=== PATIENT | male | born 1960 | race Caucasian/White ===

== ENCOUNTER → 2017-06-25 | Outpatient (CLI) | payer BC ==
--- NOTE | 2017-06-26 09:50 | US ---
THYROID ULTRASOUND CLINICAL INFORMATION: Thyroid nodule TECHNIQUE: Thyroid sonogram was performed. COMPARISON: None FINDINGS: Thyroid size: Right thyroid lobe measures 5.5 x 1.7 x 2 cm. Left thyroid lobe measures 4.8 x 1.5 x 1.2 cm. Texture: Between nodules, the thyroid parenchyma is hyperechoic with normal texture. Estimated total number of nodules >/=1 cm: 2 Nodules Right In the right thyroid lobe, two nodules are seen, largest in the inferior right thyroid lobe measuring 2 x 1.2 x 1 cm with inhomogeneous texture but no cystic components or calcifications. Color Doppler imaging shows positive flow in the upper portion of the nodule slightly greater than adjacent thyroid parenchyma. At this size, further evaluation with fine-needle aspiration biopsy is recommended unless previously performed. In the mid to posterior right thyroid lobe a hypoechoic nodule is seen which measures 1 x 0.8 x 0.7 cms. No internal calcifications are seen to suggest that this needs biopsy at this time. Isthmic thickness is normal measuring 2 mm. Left Two tiny nodules are seen in the lower pole of the left thyroid lobe. One measures 3 mm and the other measures 4 mm. No further imaging follow-up is needed for these two tiny nodules. IMPRESSION: Dominant nodule in the lower pole of the right lobe of the thyroid gland measuring 2 cm in greatest dimension. Further evaluation with fine-needle aspiration biopsy is recommended. Smaller nodules in the right and left thyroid lobes.. Follow up as per recommendations below. 1.Further evaluation by thyroid US recommended for: -Solitary ITN with high risk imaging features (locally invasive nodule or suspicious lymph nodes) -Solitary ITN of any size in pediatric pts. <= 18 years of age -Solitary ITN >= 1 cm in axial plane in pts. between 18 and 35 years of age -Solitary ITN >= 1.5 cm in axial plane in pts >= 35 years of age -Heterogeneous enlarged thyroid gland -ITN avid on FDG-PET or other nuclear medicine (MIBI and octreotide) scans. FNA biopsy is also recommended for PET avid nodules. 2.No f/u imaging is recommended for ITNs not meeting the above criteria. 3.For multiple thyroid nodules, the above recommendations for solitary ITN are to be applied to the largest nodule. 4.No US or f/u recommended for ITNs without high risk features in pts. with limited life expectancy or significant co-morbidities, unless clinically warranted. 5.These recommendations do not apply to pts. w/ increased risk for thyroid cancer or pts. with symptomatic thyroid disease. Recommendations for f/u of Incidental Thyroid Nodules (ITN) found on CT, MR, NM and Extrathyroidal US are based upon the ACR white paper and [employer] 3-tiered system for managing ITNs: J Am Maisha Radiol. 2015 Mar;12(2): 143-50 Electronically signed by: Jacob Hawkins MD 06/26/2017 9:49 AM CDT
== END ==
LOC: US 14:53
PROVIDERS: ATTEND Family Medicine
DX: E04.1 Nontoxic single thyroid nodule (principal)